=== PATIENT | male | born 1940 | race Two or more races ===

== ENCOUNTER 2021-02-20 09:32 | Inpatient (IN) | payer OTHER ==
[~2021-02-20] VITALS: Ht 167.6 cm; Wt 68.1 kg
[2021-02-20 10:42] LABS: Basophils # (auto) 0 10 ^3/uL (0-0.2); Basophils % (auto) 0.2 % (0.0-2.0); Eosinophils # (auto) 0 10 ^3/uL (0-0.8); Eosinophils % (auto) 0.5 % (0.0-7.0); Hemoglobin 15.5 g/dL (13.5-17.5); Lymphocytes # (auto) 0.5 10 ^3/uL (0.4-5.4); Lymphocytes % (auto) 8.2 % (10.0-50.0); Mean Corpuscular Hemoglobin 31.3 pg (28.0-32.0); Mean Corpuscular Hgb Conc. 35.1 g/dL (32.0-36.0); Mean Corpuscular Volume 89.1 fL (80.0-100.0); Monocytes # (auto) 0.6 10 ^3/uL (0-1.3); Neutrophils # (auto) 4.6 10 ^3/uL (1.6-8.6); Neutrophils % (auto) 81.1 % (37.0-80.0); Nucleated Red Blood Cells % 0.1 %; Red Blood Cells 4.94 10^6/uL (4.5-5.90); Red Cell Distribution Width 13.3 % (11.8-14.3); White Blood Cell 5.6 10^3/uL (4.4-10.8)
[2021-02-20 10:58] LABS: Albumin 2.4 g/dL (3.4-5.0); BUN/Creatinine Ratio 13.1; Calcium 8.4 mg/dL (8.5-10.1); Magnesium 3.1 mg/dL (1.6-2.6); Potassium 3.7 mmol/L (3.5-5.1)
[2021-02-20 11:05] LABS: Bilirubin, Total 1.1 mg/dL (0.2-1.0); Total Protein 7.7 g/dL (6.4-8.2)
[2021-02-20] MEDS ORDERED: AZITHROMYCIN 250 MG TAB PO ONE (14:30)
[2021-02-20] MEDS ORDERED: cefTRIAXone 1GM/50ML D5W 50 ML IV ONE (14:30)
[2021-02-20] MEDS ORDERED: ACETAMINOPHEN 500 MG TAB PO PRN ×2 (17:30)
[2021-02-20] MEDS ORDERED: MORPHINE SULFATE INJECTION 2 MG/ML SYRG IV PRN ×2 (17:30)
[2021-02-20] MEDS ORDERED: SODIUM CHLORIDE 0.9% 500 ML IV ONE (17:30)
[2021-02-20] MEDS ORDERED: ONDANSETRON HCL 4 MG/2 ML VIAL IV PRN (17:30)
[2021-02-20] MEDS ORDERED: hydrALAZINE HCL 20 MG/ML VL IV PRN (17:30)
[2021-02-20] MEDS ORDERED: NITROGLYCERIN 0.4 MG SL TAB SL PRN (17:30)
[2021-02-20] MEDS ORDERED: DOCUSATE CALCIUM 240 MG CAP PO PRN (17:30)
[2021-02-20 21:25] VITALS: BP 139/63
[2021-02-20] MEDS: BUDESONIDE (INHALATION) 180 MCG IH IN SCH (22:00)
[2021-02-20] MEDS: ENOXAPARIN SOD 40 MG/0.4 ML SYRINGE SC SCH (22:25)
[2021-02-20] MEDS: ALBUTEROL SULF HFA 90MCG INH 200DOSE IN PRN (22:47)
[2021-02-21 05:45] LABS: Urine Bacteria FEW /hpf (None Seen); Urine Blood 2+ /uL (Negative); Urine Budding Yeast FEW /hpf (None Seen); Urine Hyaline Cast FEW /lpf (0 - 2); Urine Mucus FEW (None Seen); Urine Specific Gravity 1.016 (1.001-1.035); Urine WBC 128 /hpf (0 - 3)
[2021-02-21 08:14] LABS: Basophils # (auto) 0 10 ^3/uL (0-0.2); Basophils % (auto) 0.2 % (0.0-2.0); Eosinophils # (auto) 0 10 ^3/uL (0-0.8); Eosinophils % (auto) 0.5 % (0.0-7.0); Hematocrit 40.9 % (41.0-53.0); Hemoglobin 14.1 g/dL (13.5-17.5); Lymphocytes # (auto) 0.7 10 ^3/uL (0.4-5.4); Lymphocytes % (auto) 13.3 % (10.0-50.0); Mean Corpuscular Hemoglobin 30.6 pg (28.0-32.0); Mean Corpuscular Hgb Conc. 34.5 g/dL (32.0-36.0); Mean Corpuscular Volume 88.6 fL (80.0-100.0); Monocytes # (auto) 0.6 10 ^3/uL (0-1.3); Monocytes % (auto) 10.8 % (0.0-12.0); Neutrophils # (auto) 3.9 10 ^3/uL (1.6-8.6); Neutrophils % (auto) 75.2 % (37.0-80.0); Red Blood Cells 4.61 10^6/uL (4.5-5.90); Red Cell Distribution Width 13.3 % (11.8-14.3); White Blood Cell 5.2 10^3/uL (4.4-10.8)
[2021-02-21 08:28] LABS: Calcium 7.6 mg/dL (8.5-10.1); Magnesium 3.1 mg/dL (1.6-2.6); Potassium 3.8 mmol/L (3.5-5.1)
[2021-02-21] MEDS: cefTRIAXone 1GM/50ML D5W 50 ML IV SCH (08:35)
[2021-02-21 08:37] LABS: BUN/Creatinine Ratio 16.5; Bilirubin, Total 0.9 mg/dL (0.2-1.0); CRP High Sensitivity 13.3 mg/dL (< 0.3); Total Protein 5.9 g/dL (6.4-8.2)
[2021-02-21 08:42] LABS: Thyroid Stimulating Hormone 0.26 uIU/mL (0.358-3.74)
[2021-02-21] MEDS: BUDESONIDE (INHALATION) 180 MCG IH IN SCH ×2 (09:16→19:13)
[2021-02-21] MEDS: ALBUTEROL SULF HFA 90MCG INH 200DOSE IN PRN ×2 (09:16→19:24)
[2021-02-21] MEDS ORDERED: REMDESIVIR PER PHARMACY 0 ML IV SCH (10:15)
[2021-02-21] MEDS: DexAMETHasone SOD PHOS 10MG/1ML VIAL INJ IV SCH (10:42)
[2021-02-21] MEDS: AZITHROMYCIN 500MG/ 250ML 250 ML IV SCH (10:42)
[2021-02-21] MEDS: CHOLECALCIFEROL (VITD3) 2,000 UNIT CAP/TAB PO SCH (10:43)
[2021-02-21] MEDS: ASCORBIC ACID 1,000 MG TAB PO SCH (10:43)
[2021-02-21] MEDS: ENOXAPARIN SOD 40 MG/0.4 ML SYRINGE SC SCH ×2 (10:43→22:10)
[2021-02-21] MEDS: ZINC SULFATE 220mg CAP or TAB PO SCH (10:43)
[2021-02-21] MEDS: PANTOPRAZOLE 40 MG TAB PO SCH (10:43)
[2021-02-21] MEDS ORDERED: REMDESIVIR 200 MG in NS 210ml LOADING DOSE ADULT IV ONE (13:00)
[2021-02-21 19:40] VITALS: BP 127/85
[2021-02-21 22:00] VITALS: BP 127/85
[2021-02-22 05:00] VITALS: BP 139/74
[2021-02-22 06:20] LABS: Basophils # (auto) 0 10 ^3/uL (0-0.2); Basophils % (auto) 0.3 % (0.0-2.0); Eosinophils # (auto) 0 10 ^3/uL (0-0.8); Hematocrit 41.7 % (41.0-53.0); Hemoglobin 14.3 g/dL (13.5-17.5); Lymphocytes # (auto) 0.5 10 ^3/uL (0.4-5.4); Lymphocytes % (auto) 11.5 % (10.0-50.0); Mean Corpuscular Hemoglobin 30.5 pg (28.0-32.0); Mean Corpuscular Hgb Conc. 34.2 g/dL (32.0-36.0); Mean Corpuscular Volume 89.2 fL (80.0-100.0); Monocytes # (auto) 0.5 10 ^3/uL (0-1.3); Monocytes % (auto) 10.8 % (0.0-12.0); Neutrophils # (auto) 3.3 10 ^3/uL (1.6-8.6); Neutrophils % (auto) 77.4 % (37.0-80.0); Nucleated Red Blood Cells % 0.2 %; Red Blood Cells 4.68 10^6/uL (4.5-5.90); Red Cell Distribution Width 12.9 % (11.8-14.3); White Blood Cell 4.3 10^3/uL (4.4-10.8)
[2021-02-22] MEDS: BUDESONIDE (INHALATION) 180 MCG IH IN SCH ×2 (06:22→21:20)
[2021-02-22] MEDS: ALBUTEROL SULF HFA 90MCG INH 200DOSE IN PRN ×2 (06:22→21:21)
[2021-02-22 06:50] LABS: Albumin 2.1 g/dL (3.4-5.0); BUN/Creatinine Ratio 22.1; Bilirubin, Total 0.6 mg/dL (0.2-1.0); Calcium 8.1 mg/dL (8.5-10.1); Total Protein 6.1 g/dL (6.4-8.2)
[2021-02-22 08:55] VITALS: BP 136/75
[2021-02-22] MEDS: cefTRIAXone 1GM/50ML D5W 50 ML IV SCH (10:24)
[2021-02-22] MEDS: CHOLECALCIFEROL (VITD3) 2,000 UNIT CAP/TAB PO SCH (10:26)
[2021-02-22] MEDS: PANTOPRAZOLE 40 MG TAB PO SCH (10:26)
[2021-02-22] MEDS: POTASSIUM CHL 10 Meq TABLET PO SCH (10:27)
[2021-02-22] MEDS: DexAMETHasone SOD PHOS 10MG/1ML VIAL INJ IV SCH (10:27)
[2021-02-22] MEDS: ASCORBIC ACID 1,000 MG TAB PO SCH (10:27)
[2021-02-22] MEDS: ENOXAPARIN SOD 40 MG/0.4 ML SYRINGE SC SCH ×2 (10:27→22:09)
[2021-02-22] MEDS: ZINC SULFATE 220mg CAP or TAB PO SCH (10:28)
[2021-02-22] MEDS: FUROSEMIDE 20 MG/2 ML VIAL IV SCH (10:28)
[2021-02-22] MEDS: AZITHROMYCIN 500MG/ 250ML 250 ML IV SCH (10:28)
[2021-02-22 12:37] VITALS: BP 133/74
[2021-02-22] MEDS: REMDESIVIR 100mg 100 MG in SODIUM CHL 0.9% 230 ML IV SCH (15:31)
[2021-02-22 16:38] VITALS: BP 138/73
[2021-02-22 22:00] VITALS: BP 138/73
[2021-02-23 05:00] VITALS: BP 146/83
[2021-02-23] MEDS: ALBUTEROL SULF HFA 90MCG INH 200DOSE IN PRN ×2 (06:12→23:06)
[2021-02-23] MEDS: BUDESONIDE (INHALATION) 180 MCG IH IN SCH ×2 (06:12→23:06)
[2021-02-23 07:38] LABS: Potassium 3.9 mmol/L (3.5-5.1)
[2021-02-23 07:48] LABS: Albumin 2.2 g/dL (3.4-5.0); BUN/Creatinine Ratio 28.9; Bilirubin, Total 0.5 mg/dL (0.2-1.0); Total Protein 6.2 g/dL (6.4-8.2)
[2021-02-23 08:55] VITALS: BP 133/75
[2021-02-23] MEDS: cefTRIAXone 1GM/50ML D5W 50 ML IV SCH (09:35)
[2021-02-23] MEDS: DexAMETHasone SOD PHOS 10MG/1ML VIAL INJ IV SCH (09:35)
[2021-02-23] MEDS: CHOLECALCIFEROL (VITD3) 2,000 UNIT CAP/TAB PO SCH (09:37)
[2021-02-23] MEDS: ZINC SULFATE 220mg CAP or TAB PO SCH (09:37)
[2021-02-23] MEDS: ENOXAPARIN SOD 40 MG/0.4 ML SYRINGE SC SCH ×2 (09:37→21:34)
[2021-02-23] MEDS: PANTOPRAZOLE 40 MG TAB PO SCH (09:37)
[2021-02-23] MEDS: POTASSIUM CHL 10 Meq TABLET PO SCH (09:37)
[2021-02-23] MEDS: ASCORBIC ACID 1,000 MG TAB PO SCH (09:37)
[2021-02-23] MEDS: FUROSEMIDE 20 MG/2 ML VIAL IV SCH (09:48)
[2021-02-23] MEDS: AZITHROMYCIN 500MG/ 250ML 250 ML IV SCH (10:00)
[2021-02-23 12:55] VITALS: BP 130/72
[2021-02-23] MEDS: REMDESIVIR 100mg 100 MG in SODIUM CHL 0.9% 230 ML IV SCH (14:52)
[2021-02-23 16:55] VITALS: BP 135/81
[2021-02-23 22:00] VITALS: BP 135/74
[2021-02-24 02:43] VITALS: BP 135/74
[2021-02-24 05:00] VITALS: BP 141/79
[2021-02-24] MEDS: BUDESONIDE (INHALATION) 180 MCG IH IN SCH ×2 (05:52→22:20)
[2021-02-24] MEDS: ALBUTEROL SULF HFA 90MCG INH 200DOSE IN PRN ×2 (05:53→23:17)
[2021-02-24 07:35] LABS: Albumin 2.3 g/dL (3.4-5.0); Calcium 8.1 mg/dL (8.5-10.1); Potassium 4.4 mmol/L (3.5-5.1)
[2021-02-24 07:40] LABS: BUN/Creatinine Ratio 29.1; Bilirubin, Total 0.5 mg/dL (0.2-1.0); Total Protein 6.2 g/dL (6.4-8.2)
[2021-02-24 09:00] VITALS: BP 133/68
[2021-02-24] MEDS: cefTRIAXone 1GM/50ML D5W 50 ML IV SCH (09:35)
[2021-02-24] MEDS: DexAMETHasone SOD PHOS 10MG/1ML VIAL INJ IV SCH (09:35)
[2021-02-24] MEDS: FUROSEMIDE 20 MG/2 ML VIAL IV SCH (09:37)
[2021-02-24] MEDS: PANTOPRAZOLE 40 MG TAB PO SCH (09:37)
[2021-02-24] MEDS: POTASSIUM CHL 10 Meq TABLET PO SCH (09:37)
[2021-02-24] MEDS: ZINC SULFATE 220mg CAP or TAB PO SCH (09:37)
[2021-02-24] MEDS: ASCORBIC ACID 1,000 MG TAB PO SCH (09:37)
[2021-02-24] MEDS: CHOLECALCIFEROL (VITD3) 2,000 UNIT CAP/TAB PO SCH (09:37)
[2021-02-24] MEDS: ENOXAPARIN SOD 40 MG/0.4 ML SYRINGE SC SCH ×2 (09:38→22:10)
[2021-02-24 12:35] VITALS: BP 131/75
[2021-02-24] MEDS: AZITHROMYCIN 500MG/ 250ML 250 ML IV SCH (13:01)
[2021-02-24] MEDS: REMDESIVIR 100mg 100 MG in SODIUM CHL 0.9% 230 ML IV SCH (16:31)
[2021-02-24 16:33] VITALS: BP 130/70
[2021-02-24 22:00] VITALS: BP 125/71
[2021-02-25 05:00] VITALS: BP 125/73
[2021-02-25 07:20] LABS: Basophils # (auto) 0 10 ^3/uL (0-0.2); Basophils % (auto) 0.1 % (0.0-2.0); Eosinophils # (auto) 0 10 ^3/uL (0-0.8); Eosinophils % (auto) 0.1 % (0.0-7.0); Hematocrit 41.8 % (41.0-53.0); Hemoglobin 14.4 g/dL (13.5-17.5); Lymphocytes # (auto) 0.8 10 ^3/uL (0.4-5.4); Lymphocytes % (auto) 16.9 % (10.0-50.0); Mean Corpuscular Hemoglobin 30.7 pg (28.0-32.0); Mean Corpuscular Hgb Conc. 34.4 g/dL (32.0-36.0); Mean Corpuscular Volume 89.1 fL (80.0-100.0); Monocytes # (auto) 0.7 10 ^3/uL (0-1.3); Monocytes % (auto) 13.9 % (0.0-12.0); Neutrophils # (auto) 3.3 10 ^3/uL (1.6-8.6); Nucleated Red Blood Cells % 0.1 %; Red Blood Cells 4.69 10^6/uL (4.5-5.90); Red Cell Distribution Width 13.3 % (11.8-14.3); White Blood Cell 4.8 10^3/uL (4.4-10.8)
[2021-02-25 07:55] LABS: Potassium 4.2 mmol/L (3.5-5.1)
[2021-02-25 08:07] LABS: Albumin 2.4 g/dL (3.4-5.0); BUN/Creatinine Ratio 31.6; Bilirubin, Total 0.5 mg/dL (0.2-1.0); Calcium 8.2 mg/dL (8.5-10.1); Total Protein 5.8 g/dL (6.4-8.2)
[2021-02-25 08:48] VITALS: BP 121/70
[2021-02-25] MEDS: BUDESONIDE (INHALATION) 180 MCG IH IN SCH (08:59)
[2021-02-25] MEDS: ALBUTEROL SULF HFA 90MCG INH 200DOSE IN PRN (08:59)
[2021-02-25] MEDS: cefTRIAXone 1GM/50ML D5W 50 ML IV SCH (09:17)
[2021-02-25] MEDS: POTASSIUM CHL 10 Meq TABLET PO SCH (09:18)
[2021-02-25] MEDS: ASCORBIC ACID 1,000 MG TAB PO SCH (09:18)
[2021-02-25] MEDS: FUROSEMIDE 20 MG/2 ML VIAL IV SCH (09:19)
[2021-02-25] MEDS: CHOLECALCIFEROL (VITD3) 2,000 UNIT CAP/TAB PO SCH (09:19)
[2021-02-25] MEDS: DexAMETHasone SOD PHOS 10MG/1ML VIAL INJ IV SCH (09:19)
[2021-02-25] MEDS: ZINC SULFATE 220mg CAP or TAB PO SCH (09:20)
[2021-02-25] MEDS: ENOXAPARIN SOD 40 MG/0.4 ML SYRINGE SC SCH (09:20)
[2021-02-25] MEDS: PANTOPRAZOLE 40 MG TAB PO SCH (09:20)
[2021-02-25] MEDS ORDERED: FURO20TA3 PO (09:30)
[2021-02-25] MEDS ORDERED: ALBUAER3 IN (09:30)
[2021-02-25] MEDS ORDERED: CHOL1CAP47 PO (09:30)
[2021-02-25] MEDS ORDERED: ZINC220T6 PO (09:30)
[2021-02-25] MEDS ORDERED: ASCO10003 PO (09:30)
[2021-02-25] MEDS ORDERED: DEX4T PO (09:30)
[2021-02-25] MEDS: AZITHROMYCIN 500MG/ 250ML 250 ML IV SCH (10:00)
[2021-02-25 12:40] VITALS: BP 125/69
[2021-02-25] MEDS ORDERED: RIVA10TA PO (13:20)
[2021-02-25 14:45] VITALS: BP 125/69
[2021-02-25] MEDS: REMDESIVIR 100mg 100 MG in SODIUM CHL 0.9% 230 ML IV SCH (15:17)
[2021-02-25 17:02] VITALS: BP 124/68
== END 2021-02-25 17:20 | disposition home or self-care (01) | DRG 177 ==
LOC: ER 09:32 → TELE 17:25 → TELE-EAST 02-21 18:55
PROVIDERS: ADMIT Family Medicine; ATTEND Internal Medicine
PROC: XW033E5 Introduction of Remdesivir Anti-infective into Peripheral Vein, Percutaneous Approach, New Technology Group 5 (ICD-10-PCS; principal; 2021-02-21)
DX: U07.1 COVID-19 (principal); J12.82 Pneumonia due to coronavirus disease 2019; J96.01 Acute respiratory failure with hypoxia; E87.1 Hypo-osmolality and hyponatremia; N39.0 Urinary tract infection, site not specified; E46 Unspecified protein-calorie malnutrition; E86.0 Dehydration; E55.9 Vitamin D deficiency, unspecified; I25.2 Old myocardial infarction; R73.03 Prediabetes; Z68.23 Body mass index [BMI] 23.0-23.9, adult
CPT/HCPCS: 36415; 36600; 70450; 71045; 80053; 81001; 82306; 82728; 82805; 83036; 83615; 83735; 84443; 84484; 85025; 85379; 86141; 87040; 87086; 87426; 87804; 93005; 94640; 96361; 96365; G0378; J0696; J1100